=== PATIENT | female | born 1950 | race Caucasian/White ===

== ENCOUNTER 2021-01-17 19:33 | Inpatient (IN) | payer OTHER ==
[~2021-01-17] VITALS: Ht 152.4 cm; Wt 69.4 kg
--- NOTE | 2021-01-17 19:45 | NUR ---
DA FROM HOME C/O FEVERX2 DAYS. TOOK TYLENOL AT 2PM TODAY. COVID TESTED TODAY, NO RESULTS YET. PATIENT ALERT AND ORIENTED X3. AMBULATORY WITH NON LABORED BREATHING. PLACED IN ISOLATED ROOM 18, AND ON A MONITOR/POX.
[2021-01-17] MEDS ORDERED: IV NS 0.9% 1,000 ML BAG IV ONE ×2 (20:00→22:00)
[2021-01-17 20:03] LABS: BILIRUBIN,URINE Negative (NEGATIVE); COLOR,URINE YELLOW (YELLOW); LEUKOCYTE ESTERASE ,URINE Small (NEGATIVE); NITRITE, URINE Positive (NEGATIVE); PH,URINE 5.5 (5.0-8.0); PROTEIN,URINE 30 mg/dl (NEGATIVE); UGLUCOSE 500 MG/DL mg/dL (NEGATIVE); UROBILINOGEN,URINE 0.2 EU/dL (0.2)
[2021-01-17 20:08] LABS: BACTERIA,URINE 2+ /HPF (None Seen); SQUAMOUS EPITHELIAL CELL,UR Few /HPF (None Seen)
[2021-01-17 20:10] LABS: BASOPHILS % (AUTO) 0.3 % (0.0-2.0); EOSINOPHILS % (AUTO) 0.2 % (0.0-6.0); HEMATOCRIT 41 % (33-45); HEMOGLOBIN 13.2 g/dL (11.5-14.8); LYMPHOCYTES # (AUTO) 0.6 K/uL (0.8-4.8); LYMPHOCYTES % (AUTO) 21.4 % (20.0-44.0); MEAN CORPUSCULAR HGB CONC 33 g/dl (31.0-36.0); MEAN CORPUSCULAR VOLUME 89 fL (82-100); MONOCYTES % (AUTO) 1.1 % (2.0-12.0); NEUTROPHILS # (AUTO) 2.1 K/uL (1.8-8.9); PLATELET COUNT (AUTO) 298 K/uL (150-450); RED BLOOD CELL COUNT(AUTO) 4.56 MIL/uL (4.0-5.2); WHITE BLOOD COUNT (AUTO) 2.7 K/uL (4.3-11.0)
[2021-01-17 20:22] LABS: CALCIUM, SERUM 9.9 mg/dL (8.5-10.1); CARBON DIOXIDE 22 mmol/L (21-32); CHLORIDE 101 mmol/L (98-107); CREATININE 0.9 mg/dL (0.6-1.3); GLUCOSE 226 mg/dL (74-106); POTASSIUM 3.7 mmol/L (3.5-5.1); SODIUM SERUM 137 mmol/L (136-145); UREA NITROGEN, BLOOD 20 mg/dL (7-18)
[2021-01-17 20:28] LABS: ALANINE AMINOTRANSFERASE 25 U/L (12-78); ALBUMIN 3.6 g/dL (3.4-5.0); ALKALINE PHOSPHATASE 116 U/L (46-116); ASPARTATE AMINOTRANSFERASE 20 U/L (15-37); BILIRUBIN,DIRECT 0.1 mg/dL (0.0-0.2); BILIRUBIN,TOTAL 0.5 mg/dL (0.2-1.0); TOTAL PROTEIN, SERUM 7.7 g/dL (6.4-8.2)
[2021-01-17] MEDS ORDERED: CEFTRIAXONE 1GM BAG (ER ONLY) 50 ML IV ONE ×2 (20:30)
--- NOTE | 2021-01-17 21:17 | NUR ---
CALLED [facility], AWAITING CALL BACK FROM
--- NOTE | 2021-01-17 21:35 | NUR ---
CALLED [facility], PAGED ANISH
--- NOTE | 2021-01-17 21:38 | NUR ---
[facility] ON LINE WITH
[2021-01-17] MEDS ORDERED: hydrALAZINE HCL IV 20 MG VIAL IV PRN (22:00)
[2021-01-17] MEDS ORDERED: DEXTROSE 50%-WATER 50 ML DISP.SYRIN IV PRN (22:00)
[2021-01-17] MEDS ORDERED: *INSULIN REGULAR(HUMULIN R)HUM 100 UNIT/ML VIAL SQ PRN (22:00)
[2021-01-17] MEDS ORDERED: MORPHINE SULFATE INJ 2 MG/ML DISP.SYRIN IV PRN (22:00)
[2021-01-17] MEDS ORDERED: ONDANSETRON HCL/PF 4 MG/2 ML VIAL IVP PRN (22:00)
[2021-01-17] MEDS ORDERED: LABETALOL 20 MG/4 ML VIAL IV PRN (22:00)
--- NOTE | 2021-01-18 02:51 | NUR ---
CALLED TO GIVE REPORT. NURSE IS ON BREAK.
--- NOTE | 2021-01-18 03:40 | NUR ---
REPORT GIVEN TO BEATRICE GLOVER FOR RAYNE
--- NOTE | 2021-01-18 03:54 | NUR ---
PT TRANSPORTED TO [place] WITH EMT AND RN AT BEDSIDE WITH ACLS PROTOCOL. NAD NOTED DURING TRANSPORT. PT AMBULATED FROM GURNEY TO BED ON STEADY GAIT
--- NOTE | 2021-01-18 05:00 | NUR ---
RN NOTES PATIENT RECEIVED FROM ER IN STABLE CONDITIONS. AMBULATORY, A/OX4, ABLE TO VERBALIZE NEEDS. PATIENT ON RA, O2 SAT 96%, NO SOB NOTED. PATIENT ON TELE MONITOR, SR. NO SIGNIFICANT FINDINGS UPON INITIAL NURSING ASSESSMENTS. NO WOUNDS PRESENT ON ADMISSION. IV ACCESS IS ON LEFT FOREARM G#20, 0.9% NS RUNNING AT 75 ML/HR. PATIENT'S MOST RECENT TEMPERATURE IS 99.7. COOLING MEASURES INITIATED. ALL SAFETY MEASURES IMPLEMENTED. BED IS AT LOWEST POSITION, WHEELS LOCKED, CALL LIGHT WITHIN REACH. WILL CONTINUE TO MONITOR FOR ANY CHANGES.
[2021-01-18 05:45] VITALS: BP 110/60
[2021-01-18] MEDS: IV NS 0.9% 1,000 ML IV PRN (07:02)
--- NOTE | 2021-01-18 07:20 | NUR ---
RN OPENING NOTE PATIENT RECEIVED AWAKE IN BED, VERBALLY RESPONSIVE. A/O X4. LFA G20 IN PLACE AND PATENT, CONTINUES ON FLUID NS @75 RUNNING WELL. PT NOT IN DISTRESS NO SOB NOTED. SAFETY MEASURES FOLLOWED. WILL CONTINUE TO MONITOR.
[2021-01-18] MEDS: ACETAMINOPHEN 325 MG TABLET PO PRN ×3 (07:40→23:49)
[2021-01-18 08:00] VITALS: BP 130/62
--- NOTE | 2021-01-18 08:00 | NUR ---
RN NOTE PT NOTED WITH ORAL TEMPT OF 102.7, PATIENT IS AWAKE ALERT AND VERBALLY RESPONSIVE. COOLING MEASURES DONE, PRN TYLENOL 650MG GIVEN PO. WILL CONTINUE TO MONITOR.
[2021-01-18] MEDS ORDERED: IV NS 0.9% 500 ML IV ONE (09:00)
[2021-01-18] MEDS: BLOOD SUGAR DIAGNOSTIC 1 EACH STRIP VI SCH ×4 (09:05→21:53)
[2021-01-18] MEDS: INSULIN REGULAR, HUMAN 100 UNIT/ML 3 ML VIAL SQ PRN ×3 (09:50→21:57)
--- NOTE | 2021-01-18 09:51 | NUR ---
RN NOTE PT TE,PT R/C 99.9. COOLING MEASURES STILL GIVEN. PT NOT IN DISTRESS. WILL CONTINUE TO MONITOR.
--- NOTE | 2021-01-18 10:44 | NUR ---
RN NOTE IV BOLUS 500ML NS GIVEN, TOLERATED WELL.
[2021-01-18 11:58] LABS: ALBUMIN 2.6 g/dL (3.4-5.0); BILIRUBIN,TOTAL 0.3 mg/dL (0.2-1.0); CALCIUM, SERUM 8.1 mg/dL (8.5-10.1); CREATININE 0.9 mg/dL (0.6-1.3); MAGNESIUM 1.8 mg/dL (1.8-2.4); PHOSPHORUS 3.8 mg/dL (2.5-4.9); POTASSIUM 3.5 mmol/L (3.5-5.1); TOTAL PROTEIN, SERUM 5.9 g/dL (6.4-8.2)
[2021-01-18 11:59] LABS: BASOPHILS % (AUTO) 0.2 % (0.0-2.0); EOSINOPHILS % (AUTO) 0.1 % (0.0-6.0); HEMATOCRIT 33 % (33-45); HEMOGLOBIN 10.7 g/dL (11.5-14.8); LYMPHOCYTES % (AUTO) 9.2 % (20.0-44.0); MEAN CORPUSCULAR HGB CONC 32 g/dl (31.0-36.0); MEAN CORPUSCULAR VOLUME 89 fL (82-100); MONOCYTES # (AUTO) 0.8 K/uL (0.1-1.30); NEUTROPHILS # (AUTO) 9.5 K/uL (1.8-8.9); NEUTROPHILS % (AUTO) 83.5 % (43.0-81.0); PLATELET COUNT (AUTO) 264 K/uL (150-450); RED BLOOD CELL COUNT(AUTO) 3.71 MIL/uL (4.0-5.2); WHITE BLOOD COUNT (AUTO) 11.4 K/uL (4.3-11.0)
[2021-01-18 12:00] VITALS: BP 106/56
[2021-01-18] MEDS: PIPERACILLIN /TAZOBACTAM 3.375 G in IV D5W 50 ML IV SCH ×2 (12:53→17:25)
[2021-01-18] MEDS: VANCOMYCIN 1 GM in IV D5W 250ml IV SCH (13:47)
[2021-01-18 16:00] VITALS: BP 112/58
--- NOTE | 2021-01-18 19:54 | NUR ---
RN CLOSING NOTE PATIENT SEEN AWAKE IN BED, VERBALLY RESPONSIVE. LFA G20 IN PLACE AND PATENT, CONTINUES ON FLUID NS @75 RUNNING WELL. PT NOT IN DISTRESS NO SOB NOTED. PT GIVEN COOLING MEASURES AND PRN TYLENOL FOR TEMPT OF 102.3, PT TEMPT R/C AND WAS 99.8. SAFETY MEASURES FOLLOWED. WILL CONTINUE TO MONITOR. ALL NEEDS ATTENDED. DUE MEDICATION GIVEN.
[2021-01-18 20:00] VITALS: BP 108/60
[2021-01-18] MEDS ORDERED: CEFTRIAXONE 1 G in IV D5W 50 ML IV SCH (21:00)
[2021-01-19] VITALS: BP 129/78
[2021-01-19] MEDS: PIPERACILLIN /TAZOBACTAM 3.375 G in IV D5W 50 ML IV SCH ×3 (00:03→11:55)
[2021-01-19] MEDS: IV NS 0.9% 1,000 ML IV PRN (01:10)
[2021-01-19] MEDS: VANCOMYCIN 1 GM in IV D5W 250ml IV SCH ×2 (01:32→13:15)
[2021-01-19 04:00] VITALS: BP 123/61
[2021-01-19 07:40] LABS: BASOPHILS % (AUTO) 0.3 % (0.0-2.0); EOSINOPHILS % (AUTO) 0.1 % (0.0-6.0); HEMATOCRIT 37 % (33-45); HEMOGLOBIN 12.3 g/dL (11.5-14.8); LYMPHOCYTES # (AUTO) 1.6 K/uL (0.8-4.8); LYMPHOCYTES % (AUTO) 15.1 % (20.0-44.0); MEAN CORPUSCULAR HGB CONC 33 g/dl (31.0-36.0); MEAN CORPUSCULAR VOLUME 89 fL (82-100); MONOCYTES % (AUTO) 9.7 % (2.0-12.0); NEUTROPHILS % (AUTO) 74.8 % (43.0-81.0); PLATELET COUNT (AUTO) 285 K/uL (150-450); RED BLOOD CELL COUNT(AUTO) 4.17 MIL/uL (4.0-5.2); WHITE BLOOD COUNT (AUTO) 10.7 K/uL (4.3-11.0)
[2021-01-19 07:59] LABS: CALCIUM, SERUM 8.8 mg/dL (8.5-10.1); CREATININE 0.8 mg/dL (0.6-1.3); MAGNESIUM 2.2 mg/dL (1.8-2.4); PHOSPHORUS 2.9 mg/dL (2.5-4.9); POTASSIUM 3.6 mmol/L (3.5-5.1)
[2021-01-19 08:00] VITALS: BP 146/68
--- NOTE | 2021-01-19 08:00 | NUR ---
RN note: Pt received alert awake oriented X4. On RA, no breathing distress noted. Denies chest pain & discomfort. IV fluids running as ordered. IV site C/D/I. On tele monitor, JOANA. Safety measures observed. All needs attended. Encourage pt to use call light for assistance. Call light within reach. Continue to monitor.
[2021-01-19] MEDS: BLOOD SUGAR DIAGNOSTIC 1 EACH STRIP VI SCH ×2 (08:10→12:22)
[2021-01-19] MEDS: INSULIN REGULAR, HUMAN 100 UNIT/ML 3 ML VIAL SQ PRN ×2 (08:11→12:21)
[2021-01-19] MEDS: ACETAMINOPHEN 325 MG TABLET PO PRN ×2 (08:18→14:13)
[2021-01-19 12:00] VITALS: BP 120/64
--- NOTE | 2021-01-19 15:46 | NUR ---
construction tech note Pt. transferred to [facility] per insurance request. Report given to Ciro BARRON. Room assigned 5208, discharge package given to data collection specialist. Discharge instructions discussed with patient, verbalized understanding. Patient A/O x 4, ambulatory on room air, and skin intact. Stable during transfer. Transfer with belongings. Attempted to reach daughter 3 times via phone call, no answer, unable to leave voice message. Per pt. her daughter Esther aware of transfer already. Regarding blood culture corrected report, Lore Mc NP and receiving nurse Ciro BARRON, made aware, updated report faxed to [facility] . Patient left via gurney.
== END 2021-01-19 15:33 | disposition short-term general hospital (02) | DRG 871 ==
LOC: ER 19:38 → TELE1 01-18 02:38
PROVIDERS: ADMIT Internal Medicine; ATTEND Registered Nurse
DX: A41.9 Sepsis, unspecified organism (principal); J15.9 Unspecified bacterial pneumonia; E87.2 Acidosis; Z16.12 Extended spectrum beta lactamase (ESBL) resistance; R65.20 Severe sepsis without septic shock; N30.90 Cystitis, unspecified without hematuria; E11.65 Type 2 diabetes mellitus with hyperglycemia; I10 Essential (primary) hypertension; K59.00 Constipation, unspecified; Z20.822 Contact with and (suspected) exposure to COVID-19; R10.9 Unspecified abdominal pain; B96.20 Unspecified Escherichia coli [E. coli] as the cause of diseases classified elsewhere; Z79.4 Long term (current) use of insulin
CPT/HCPCS: 36415; 71045-TC; 80048-TC; 80053-TC; 80076-TC; 81001; 83605-TC; 83735-TC; 84100-TC; 84484-TC; 85025-TC; 85730-TC; 87040-TC; 87081-TC; 87086-TC; 87186-TC; C9803; G0378; J0696; J1815; J2543; J3370; J7030; J7060; U0003